=== PATIENT | male | born 1990 | race Asian ===

== ENCOUNTER → 2019-07-16 08:35 | Outpatient (CLI) | payer OTHER, SELFPAY ==
--- NOTE | 2019-07-16 | DI.US.S_ITS ---
PROCEDURE: US FINE NEEDLE ASPIRATION INDICATIONS: LEFT THYROID NODULE TECHNIQUE: The indications, alternatives, benefits, risks, and complications of the procedure were explained to the patient. Written informed consent was obtained and placed in the chart. The area of interest was examined sonographically and a site was chosen for ultrasound guided percutaneous sampling. The skin was prepared and draped in the usual fashion, and anesthetized with 1% lidocaine infiltrated from the skin down to the lesion. Multiple passes were then performed, with contents emptied into an appropriate pathology specimen container. A bandage was applied to the area of access at completion of the study. COMPARISON: None. FINDINGS: Location(s) of lesion(s) sampled: Mid pole of left thyroid lobe [place]: 25 gauge hypodermic needles. Number of passes: 6 Medications: 1% lidocaine for local anaesthesia. Complications: None. IMPRESSION: Successful ultrasound-guided left thyroid lobe nodule fine needle aspiration, with cytology results pending. Dictated by: Silvino Guerrero M.D. on 07/16/2019 at 10:54 Approved by: Silvino Guerrero M.D. on 07/16/2019 at 10:54
--- NOTE | 2019-07-16 | PATH_ITS ---
Note [facility] Accession Number: [id number] TESTS RESULT FLAG UNITS REF RANGE LAB Clinician Provided Cytology Information No. of containers..01 ThinPrep Vial No. of containers..10 Previously Prepared Cytology Slide [A] 01 L THYROID MID DIAGNOSIS: [A] 02 LEFT THYROID MID SUSPICIOUS FOR MALIGNANCY. [place] CATEGORY V. SUSPICIOUS FOR PAPILLARY CARCINOMA. SPECIMEN CONSISTS OF FOLLICULAR CELLS WITH NUCLEAR ENLARGEMENT, AND NUCLEAR PALLOR WITH GROOVES. INTRANUCLEAR PSEUDOINCLUSIONS ARE PRESENT. 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 Elam reviewed selected slides and agrees with the diagnosis. Dr. Madden called Dr. Law's office on 07/17/2019. Pathologist ICD10: 02 R89.6 01 Thyroid: normal size; no masses or tenderness. 02 Ana Paula Madden MD, Pathologist NPI- [id number] Sae Reynoso, Faro Dealer ([facility]) 01 30 CC, PINK, CLEAR Also received 5 alcohol fixed and 5 quick stained slides and 1 RNA vial. /[facility] 07/17/2019 1035 Local FLAG LEGEND: L-Low Normal,H-High Normal,LL-Alert Low,HH-Alert High <-Panic Low,>-Panic High,A-Abnormal,AA-Critical Abnormal Performed at: 01 =Z [facility] [address] [place] [address] [address], [place] [address] Candido Roberts MD, 02 [facility] [address] [place] [address] Ana Paula Madden MD, Performed at: 01 [facility] [address] [facility] [address] [place] [address], [place], [place] [id number] MD Candido Roberts MD Phone: [phone]
== END ==
PROVIDERS: Visit Provider Otolaryngology
DX: E04.1 Nontoxic single thyroid nodule (principal); R89.6 Abnormal cytological findings in specimens from other organs, systems and tissues
CPT/HCPCS: 10005

== ENCOUNTER 2019-09-15 13:50 | Emergency (ER) | payer OTHER, SELFPAY ==
[2019-09-15 13:57] VITALS: BP 160/104; PULSE 120; TEMP 37; O2SAT 99; BMI 29.2
--- NOTE | 2019-09-15 14:25 | DI.RAD.S_ITS ---
PROCEDURE: XR ACUTE ABDOMEN SERIES INDICATIONS: abd/ chest pain TECHNIQUE: One view chest and two views of the abdomen were acquired. COMPARISON: None. FINDINGS: Surgical changes and devices: None. Chest: Lungs are clear. Heart size is normal. No pleural effusions. No pneumoperitoneum. Abdomen: Bowel gas pattern is normal. No suspicious calcifications. Visualized solid organ contours appear normal. Bones: No suspicious bony lesions. IMPRESSION: No evidence of acute pulmonary or abdominal process. Dictated by: Shashi Dacosta M.D. on 09/15/2019 at 15:02 Approved by: Shashi Dacosta M.D. on 09/15/2019 at 15:02
--- NOTE | 2019-09-15 14:27 | ED.ABDPAIN ---
HPI - Abdominal Pain <FLACA Coello - Last Filed: 09/15/19 20:34> General Chief Complaint: Abdominal Pain Stated Complaint: stomach pain/burping alot/pain worse Time Seen by Provider: 09/15/19 14:16 Source: patient and family Mode of arrival: Ambulatory Limitations: no limitations History of Present Illness HPI narrative: The patient is a 28-year-old male former smoker with history of thyroid cancer who presents with a chief complaint of epigastric pain. He states he has had epigastric stomach pain for the past several years, but it got worse last night. He states he has had a lot of burping, gas, pain radiating up his chest and radiating to his left chest. He complains of some lightheadedness and dizziness. He denies any shortness of breath, denies any fevers. He states that his primary care told him he had acid reflux and started him on Protonix as an outpatient, but he did not start taking it. He has not taken anything at home to feel better other than Tylenol. He states he is very concerned about esophageal cancer in his father is recently been diagnosed. He has a scope scheduled on the 02 of October. He states that his primary care provider is aware of everything going on. His states that he has been drinking a lot of leg coffee, likes to eat fried and acidic and spicy foods. He denies any history of abdominal surgeries. Related Data Previous Rx's Medication Instructions Recorded omeprazole 40 mg PO DAILY #20 cap 09/15/19 sucralfate [Carafate] 10 ml PO QACHS 10 Days #400 ml 09/15/19 Review of Systems <FLACA Coello - Last Filed: 09/15/19 20:34> Review of Systems Narrative: GENERAL: Denies chills, fatigue, malaise, fever, sweats. HEENT: Denies sinus pain, ear pain, sore throat, difficulty swallowing, dizziness. RESPIRATORY: Denies dyspnea, cough, wheezing, hemoptysis, sputum. CARDIOVASCULAR: Denies chest pain, palpitations, orthopnea, edema, GASTROINTESTINAL: See HPI : Denies dysuria, frequency, incontinence, hematuria, urinary retention. MUSCULOSKELETAL: denies weakness, joint pain, or bony pain SKIN: Denies rash, skin lesions, or other NEUROLOGIC: Denies weakness, headache, numbness, change in speech, confusion, seizures, incoordination. PSYCHIATRIC: No concerning psychosocial issues. 12 point review of systems is negative except for those stated above Patient History <Amy BRANDEE Reynolds - Last Filed: 09/15/19 20:34> Social History Smoking Status: Former smoker Substance Use Type: does not use Exam <Amy BRANDEE Reynolds - Last Filed: 09/15/19 20:34> Narrative Exam Narrative: GENERAL: This is a well-nourished, well-developed patient, no acute distress HEAD: Atraumatic. Normocephalic. No temporal or scalp tenderness. EYES: Pupils equal round and reactive. Extraocular motions intact. No scleral icterus. No injection or drainage. ENT: Nose without bleeding, purulent drainage or septal hematoma. Throat without erythema, tonsillar hypertrophy or exudate. Uvula midline. Airway patent. NECK: Trachea midline. No JVD or lymphadenopathy. Supple, nontender, no meningeal signs. CARDIOVASCULAR: Regular rate and rhythm without murmurs, gallops, or rubs. RESPIRATORY: Clear to auscultation. Breath sounds equal bilaterally. No wheezes, rales, or rhonchi. No cough. No increased respiratory effort. No accessory muscle use. GASTROINTESTINAL: Abdomen soft. Of infection No hepato-splenomegaly, or palpable masses. No guarding. Active bowel sounds all 4 quadrants. Pain to palpation epigastric and right upper quadrant area EXTREMITIES: No clubbing, cyanosis, or edema. No joint tenderness, effusion, or edema noted. BACK: Nontender without deformity or crepitance. No flank tenderness. NEURO: AOx3. SKIN: No rash or erythema on visible skin. Postop thyroid incision clean dry intact well-approximated with no signs or symptoms Initial Vital Signs Initial Vital Signs: Vital Signs Temperature 98.6 F 09/15/19 13:57 Pulse Rate 120 H 09/15/19 13:57 Blood Pressure 160/104 H 09/15/19 13:57 Pulse Oximetry 99 09/15/19 13:57 <Meaghan Maza DO - Last Filed: 09/18/19 07:25> Initial Vital Signs Initial Vital Signs: Vital Signs Temperature 98.6 F 09/15/19 13:57 Pulse Rate 120 H 09/15/19 13:57 Blood Pressure 160/104 H 09/15/19 13:57 Pulse Oximetry 99 09/15/19 13:57 Course <RYLEY Coello-BC - Last Filed: 09/15/19 20:34> Orders Ordered: Discontinued Medications Al Hydrox/Mg Hydrox/Simethicone 20 ml/ Lidocaine HCl 15 ml 0 ml PO NOW ONE Stop: 09/15/19 15:20 Last Admin: 09/15/19 15:22 Dose: 35 ml Documented by: ZAID Sodium Chloride (Normal Saline 0.9%) 1,000 mls @ 1,000 mls/hr IV BOLUS ONE Stop: 09/15/19 15:25 Last Infusion: 09/15/19 16:42 Dose: 0 mls/hr Documented by: Admin: 09/15/19 14:34 Dose: 1,000 mls/hr Documented by: ZAID Ondansetron HCl (Zofran) 4 mg IV NOW ONE Stop: 09/15/19 14:27 Last Admin: 09/15/19 14:34 Dose: 4 mg Documented by: ZAID Pantoprazole Sodium (Protonix) 40 mg IV NOW ONE Stop: 09/15/19 14:27 Last Admin: 09/15/19 14:34 Dose: 40 mg Documented by: ZAID Vital Signs Vital signs: Vital Signs - 8 hr 09/15/19 13:57 09/15/19 15:17 09/15/19 16:08 Temperature 98.6 F Pulse Rate 120 H 95 H 84 Respiratory Rate 16 16 Blood Pressure 160/104 H Blood Pressure [Right Arm] 137/78 140/85 Pulse Oximetry 99 99 97 09/15/19 17:00 Temperature Pulse Rate 86 Respiratory Rate 16 Blood Pressure Blood Pressure [Right Arm] 135/90 Pulse Oximetry 98 <Meaghan Maza DO - Last Filed: 09/18/19 07:25> Orders Ordered: Discontinued Medications Al Hydrox/Mg Hydrox/Simethicone 20 ml/ Lidocaine HCl 15 ml 0 ml PO NOW ONE Stop: 09/15/19 15:20 Last Admin: 09/15/19 15:22 Dose: 35 ml Documented by: ZAID Sodium Chloride (Normal Saline 0.9%) 1,000 mls @ 1,000 mls/hr IV BOLUS ONE Stop: 09/15/19 15:25 Last Infusion: 09/15/19 16:42 Dose: 0 mls/hr Documented by: Admin: 09/15/19 14:34 Dose: 1,000 mls/hr Documented by: ZAID Ondansetron HCl (Zofran) 4 mg IV NOW ONE Stop: 09/15/19 14:27 Last Admin: 09/15/19 14:34 Dose: 4 mg Documented by: ZAID Pantoprazole Sodium (Protonix) 40 mg IV NOW ONE Stop: 09/15/19 14:27 Last Admin: 09/15/19 14:34 Dose: 40 mg Documented by: ZAID Vital Signs Vital signs: Vital Signs - 8 hr 09/15/19 13:57 09/15/19 15:17 09/15/19 16:08 Temperature 98.6 F Pulse Rate 120 H 95 H 84 Respiratory Rate 16 16 Blood Pressure 160/104 H Blood Pressure [Right Arm] 137/78 140/85 Pulse Oximetry 99 99 97 09/15/19 17:00 Temperature Pulse Rate 86 Respiratory Rate 16 Blood Pressure Blood Pressure [Right Arm] 135/90 Pulse Oximetry 98 MDM - Abdominal Pain <RYLEY Coello-BC - Last Filed: 09/15/19 20:34> Lab Data Result diagrams: 09/15/19 14:27 09/15/19 14:27 Labs: Lab Results 09/15/19 09/15/19 09/15/19 Range/Units 14:27 14:27 14:27 WBC 10.3 (4.5-11.0) X10^3/uL RBC 5.87 (4.5-5.9) X10^6/uL Hgb 17.2 (13.5-17.5) g/dL Hct 49.4 (41-53) % MCV 84.2 (80-100) fL MCH 29.3 (26-34) PG MCHC 34.8 (30-36) % RDW 12.8 (11.6-14.8) % Plt Count 310 (150-400) X10^3/uL Neut % (Auto) 73.2 (50-75) % Lymph % (Auto) 19.2 L (25-40) % [place] % (Auto) 6.9 (3-14) % Eos % (Auto) 0.5 L (2-4) % Baso % (Auto) 0.2 (0-2) % Neut # (Auto) 7600 H (9010-3087) /uL Lymph # (Auto) 2000 (4289-5598) /uL [place] # (Auto) 700 (0-900) /uL Eos # (Auto) 100 (0-450) /uL Baso # (Auto) 0 (0-100) /uL PT 11.1 (10.1-12.7) SECONDS INR 1.0 (0.9-1.3) APTT 31 (26.4-36.2) SECONDS Sodium 140 (137-145) mmol/L Potassium 3.7 (3.4-5.1) mmol/L Chloride 100 (98-107) mmol/L Carbon Dioxide 27 (22-32) mmol/L BUN 13 (9-20) mg/dL Creatinine 0.80 (0.66-1.25) mg/dL Estimated GFR > 60.0 (>60) mL/min BUN/Creatinine Ratio 16.3 (6-22) Glucose 110 H (70-100) mg/dL Calcium 10.6 H (8.4-10.2) mg/dL Total Bilirubin 1.1 (0.2-1.3) mg/dL AST 45 (17-59) IU/L ALT 100 H (<50) IU/L Alkaline Phosphatase 61 (38-126) U/L Total Creatine Kinase 71 (55-170) U/L CK-MB (CK-2) TNP CK-MB (CK-2) Rel Index TNP Troponin I < 0.012 (0.01-0.034) ng/mL Total Protein 8.9 H (6.3-8.2) g/dL Albumin 5.2 H (3.5-5.0) g/dL Globulin 3.7 (1.7-4.1) g/dL Albumin/Globulin Ratio 1.4 (1.0-2.8) Amylase 95 (30-110) U/L Lipase 63 (23-300) U/L Point of care testing: Urine Dip Bedside Urine Glucose Negative Bedside Urine Bilirubin - Negative Bedside Urine Ketone - Negative Urine Specific [place] 1.015 Bedside Urine Occult Blood - Negative Bedside Urine pH 6.0 Bedside Urine Protein - Negative Bedside Urine Urobilinogen - Negative Bedside Urine Nitrite - Negative Bedside Urine Leukocytes - Negative Esterase Imaging Data US - abdomen: Radiologist's impression: [address] [address] Ultrasound Report Signed Patient: Nestor Sen#: [id number] : 1990Acct:[id number] Age/Sex: 28 / MDate of Service: 09/15/19 Loc: ED Accession Number: [id number] Procedure: US abdomen limited Ordering Provider: Amy Reynolds PROCEDURE: US ABDOMEN LIMITED INDICATIONS: EPIGASTRIC PAIN TECHNIQUE: Real-time focused scanning was performed of the abdomen, with image documentation. COMPARISON: [facility], , XR ACUTE ABDOMEN SERIES, 09/15/2019, 14:39. FINDINGS: The liver demonstrates normal size. The liver demonstrates generalized increased echogenicity. This decreases ultrasound sensitivity for detection of hepatic masses. No findings of gallstones or sludge are seen. The gallbladder wall is not thickened, measuring 3 mm or less. No specific pericholecystic fluid is seen. The sonographic Heck sign is negative. There is no biliary dilatation, the common bile duct measures 4 mm. The visualized pancreas is unremarkable. IMPRESSION: The gallbladder demonstrates a normal sonographic appearance. No biliary dilatation is seen. The liver demonstrates increased echogenicity. This finding is nonspecific, yet it is most commonly attributed to fatty infiltration. Dictated by: Kevyn Hartman M.D. on 09/15/2019 at 15:34 Approved by: Kevyn Hartman M.D. on 09/15/2019 at 15:35 Chest x-ray: Radiologist's impression: [address] [address] XRay Report Signed Patient: Nestor Sen#: [id number] : 1990Acct:[id number] Age/Sex: 28 / MDate of Service: 09/15/19 Loc: ED Accession Number: [id number] Procedure: XR acute abdomen series Ordering Provider: Amy Reynolds PROCEDURE: XR ACUTE ABDOMEN SERIES INDICATIONS: abd/ chest pain TECHNIQUE: One view chest and two views of the abdomen were acquired. COMPARISON: None. FINDINGS: Surgical changes and devices: None. Chest: Lungs are clear. Heart size is normal. No pleural effusions. No pneumoperitoneum. Abdomen: Bowel gas pattern is normal. No suspicious calcifications. Visualized solid organ contours appear normal. Bones: No suspicious bony lesions. IMPRESSION: No evidence of acute pulmonary or abdominal process. Dictated by: Shashi Dacosta M.D. on 09/15/2019 at 15:02 Approved by: Shashi Dacosta M.D. on 09/15/2019 at 15:02 [facility] Narrative Medical decision making narrative: The patient is a 28-year-old male who presents with a chief complaint of epigastric pain. He states it has been going on for several months if not years, got worse yesterday. He has negative troponin, his lab work is grossly within normal limits. He does not an acute abdomen on exam. Given his pain to palpation right upper quadrant, I did obtain an ultrasound which illustrated no evidence of cholecystitis. He improved greatly in the emergency department with administration of Protonix and GI cocktail p.o. I discussed at length the importance of follow-up with primary care provider, dietary changes etc. The patient is very concerned that esophageal cancer, as his father recently had this diagnosis and discussed at length that controlling his GERD decreases risk factors for esophageal cancer. The patient already has planned follow-up with primary care provider as well as Gastroenterology in a planned endoscope. I discussed at length coming back to emergency department for any acute concerns such as concern of chest pain, shortness of breath order to her stroke. Patient have no questions or concerns upon discharge and state understanding of return precautions as well as follow-up care. <Meaghan Maza, DO - Last Filed: 09/18/19 07:25> Lab Data Labs: Lab Results 09/15/19 09/15/19 09/15/19 Range/Units 14:27 14:27 14:27 WBC 10.3 (4.5-11.0) X10^3/uL RBC 5.87 (4.5-5.9) X10^6/uL Hgb 17.2 (13.5-17.5) g/dL Hct 49.4 (41-53) % MCV 84.2 (80-100) fL MCH 29.3 (26-34) PG MCHC 34.8 (30-36) % RDW 12.8 (11.6-14.8) % Plt Count 310 (150-400) X10^3/uL Neut % (Auto) 73.2 (50-75) % Lymph % (Auto) 19.2 L (25-40) % [place] % (Auto) 6.9 (3-14) % Eos % (Auto) 0.5 L (2-4) % Baso % (Auto) 0.2 (0-2) % Neut # (Auto) 7600 H (4422-1076) /uL Lymph # (Auto) 2000 (6419-6228) /uL [place] # (Auto) 700 (0-900) /uL Eos # (Auto) 100 (0-450) /uL Baso # (Auto) 0 (0-100) /uL PT 11.1 (10.1-12.7) SECONDS INR 1.0 (0.9-1.3) APTT 31 (26.4-36.2) SECONDS Sodium 140 (137-145) mmol/L Potassium 3.7 (3.4-5.1) mmol/L Chloride 100 (98-107) mmol/L Carbon Dioxide 27 (22-32) mmol/L BUN 13 (9-20) mg/dL Creatinine 0.80 (0.66-1.25) mg/dL Estimated GFR > 60.0 (>60) mL/min BUN/Creatinine Ratio 16.3 (6-22) Glucose 110 H (70-100) mg/dL Calcium 10.6 H (8.4-10.2) mg/dL Total Bilirubin 1.1 (0.2-1.3) mg/dL AST 45 (17-59) IU/L ALT 100 H (<50) IU/L Alkaline Phosphatase 61 (38-126) U/L Total Creatine Kinase 71 (55-170) U/L CK-MB (CK-2) TNP CK-MB (CK-2) Rel Index TNP Troponin I < 0.012 (0.01-0.034) ng/mL Total Protein 8.9 H (6.3-8.2) g/dL Albumin 5.2 H (3.5-5.0) g/dL Globulin 3.7 (1.7-4.1) g/dL Albumin/Globulin Ratio 1.4 (1.0-2.8) Amylase 95 (30-110) U/L Lipase 63 (23-300) U/L Point of care testing: Urine Dip Bedside Urine Glucose Negative Bedside Urine Bilirubin - Negative Bedside Urine Ketone - Negative Urine Specific [place] 1.015 Bedside Urine Occult Blood - Negative Bedside Urine pH 6.0 Bedside Urine Protein - Negative Bedside Urine Urobilinogen - Negative Bedside Urine Nitrite - Negative Bedside Urine Leukocytes - Negative Esterase Discharge Plan Departure Patient Disposition: Home Clinical Impression: Abdominal pain Qualifiers: Abdominal location: epigastric Qualified Code(s): R10.13 - Epigastric pain Gastroesophageal reflux disease Qualifiers: Esophagitis presence: esophagitis presence not specified Qualified Code(s): K21.9 - Gastro-esophageal reflux disease without esophagitis Discharge Date/Time: 09/15/19 17:28 Instructions: Gastroesophageal Reflux Disease (Alternative Therapy), DI for Gastroesophageal Reflux Disease (GERD), DI for Abdominal Pain-Adult, GERD Diet Activity Restrictions/Additional Instructions: Please follow up with primary care provider in the next few days. [facility] [place] All of your lab work and imaging came back normal today. I suggest that you follow-up as scheduled for your scope, and further GI evaluation Please follow a GERD diet as this seems to make your symptoms worse. Please avoid acidic foods, spicy foods, deep fried fatty foods etc. Please come back to the emergency department for any acute concerns such as chest pain, shortness of breath etc Prescriptions: New omeprazole 40 mg capsule,delayed release(DR/EC) 40 mg PO DAILY Qty: 20 RF: 0 sucralfate [Carafate] 100 mg/mL suspension 10 ml PO QACHS 10 Days Qty: 400 RF: 0 Referrals: Skylar Gabriel [Primary Care Provider] -
[2019-09-15] MEDS: SODIUM CHLORIDE 0.9% 1,000 ML 1000 ML IV (14:34)
[2019-09-15] MEDS: ONDANSETRON 4 MG/2 ML INJ IV (14:34)
[2019-09-15] MEDS: PANTOPRAZOLE 40 MG VIAL IV (14:34)
[2019-09-15 14:38] LABS: Add Manual Diff / Slide Review NO; Basophils Absolute Auto 0 /uL (0-100); Basophils Percent Auto 0.2 % (0-2); Eosinophils Absolute Auto 100 /uL (0-450); Eosinophils Percent Auto 0.5 % (2-4); Hematocrit 49.4 % (41-53); Hemoglobin 17.2 g/dL (13.5-17.5); Lymphocytes Absolute Auto 2000 /uL (1100-4500); Lymphocytes Percent Auto 19.2 % (25-40); Mean Corpuscular HGB Conc 34.8 % (30-36); Mean Corpuscular Hemoglobin 29.3 PG (26-34); Mean Corpuscular Volume 84.2 fL (80-100); Monocytes Absolute Auto 700 /uL (0-900); Monocytes Percent Auto 6.9 % (3-14); Neutrophils Absolute Auto 7600 /uL (1500-7000); Neutrophils Percent Auto 73.2 % (50-75); Platelet Count 310 X10^3/uL (150-400); Red Blood Cell Count 5.87 X10^6/uL (4.5-5.9); Red Cell Distribution Width 12.8 % (11.6-14.8); White Blood Cell Count 10.3 X10^3/uL (4.5-11.0)
[2019-09-15 14:45] LABS: Prothrombin Time 11.1 SECONDS (10.1-12.7)
[2019-09-15 14:48] LABS: PTT Partial Thromboplastin Tim 31 SECONDS (26.4-36.2)
[2019-09-15 14:49] LABS: Alanine Aminotransferase 100 IU/L (<50); Albumin 5.2 g/dL (3.5-5.0); Albumin Globulin Ratio 1.4 (1.0-2.8); Alkaline Phosphatase 61 U/L (38-126); Amylase 95 U/L (30-110); Aspartate Aminotransferase 45 IU/L (17-59); BUN Creatinine Ratio 16.3 (6-22); Bilirubin Total 1.1 mg/dL (0.2-1.3); Blood Urea Nitrogen 13 mg/dL (9-20); Calcium 10.6 mg/dL (8.4-10.2); Carbon Dioxide 27 mmol/L (22-32); Chloride 100 mmol/L (98-107); Creatine Kinase 71 U/L (55-170); Estimated Glomerular Filt Rate > 60.0 mL/min (>60); Globulin 3.7 g/dL (1.7-4.1); Glucose 110 mg/dL (70-100); HEMOLYSIS < 15 (0-50); Lipase 63 U/L (23-300); Potassium 3.7 mmol/L (3.4-5.1); Sodium 140 mmol/L (137-145); Total Protein 8.9 g/dL (6.3-8.2)
[2019-09-15 15:00] LABS: Troponin I < 0.012 ng/mL (0.01-0.034)
[2019-09-15 15:17] VITALS: BP 137/78; PULSE 95; RESP 16; O2SAT 99
--- NOTE | 2019-09-15 15:18 | DI.US.S_ITS ---
PROCEDURE: US ABDOMEN LIMITED INDICATIONS: EPIGASTRIC PAIN TECHNIQUE: Real-time focused scanning was performed of the abdomen, with image documentation. COMPARISON: [facility], CR, XR ACUTE ABDOMEN SERIES, 09/15/2019, 14:39. FINDINGS: The liver demonstrates normal size. The liver demonstrates generalized increased echogenicity. This decreases ultrasound sensitivity for detection of hepatic masses. No findings of gallstones or sludge are seen. The gallbladder wall is not thickened, measuring 3 mm or less. No specific pericholecystic fluid is seen. The sonographic Heck sign is negative. There is no biliary dilatation, the common bile duct measures 4 mm. The visualized pancreas is unremarkable. IMPRESSION: The gallbladder demonstrates a normal sonographic appearance. No biliary dilatation is seen. The liver demonstrates increased echogenicity. This finding is nonspecific, yet it is most commonly attributed to fatty infiltration. Dictated by: Kevyn Hartman M.D. on 09/15/2019 at 15:34 Approved by: Kevyn Hartman M.D. on 09/15/2019 at 15:35
[2019-09-15] MEDS: MAG HYDROX/ALUMINUM/SIMETH SUS 20 ML, LIDOCAINE VISCOUS 2% 15 ML PO (15:22)
--- NOTE | 2019-09-15 15:41 | PC.NURSE ---
pt states he feels a lump in his throat when attempting to swallow. States the GI cocktail made him feel numb and helped a little with pain. Provider notified.
[2019-09-15 16:08] VITALS: BP 140/85; PULSE 84; RESP 16; O2SAT 97
[2019-09-15 17:00] VITALS: BP 135/90; PULSE 86; RESP 16; O2SAT 98
== END 2019-09-15 17:28 | disposition home or self-care (01) ==
PROVIDERS: Emergency Provider Nurse Practitioner Family
DX: R10.13 Epigastric pain (principal); K21.9 Gastro-esophageal reflux disease without esophagitis
CPT/HCPCS: 36415; 74022; 76705; 80053; 81003; 82150; 82550; 83690; 84484; 85025; 85610; 85730; 93005; 96361; 96374; 96375; 99283; 99284; C9113; J2405

== ENCOUNTER 2019-11-02 19:13 | Emergency (ER) | payer OTHER, SELFPAY ==
[2019-11-02 19:42] VITALS: BP 143/93; PULSE 74; RESP 15; TEMP 37; O2SAT 99; BMI 29.2
--- NOTE | 2019-11-02 19:42 | ED.GENADULT ---
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 Approximately 2 months ago underwent a total thyroidectomy secondary to thyroid cancer. Is currently on Synthroid. He states that for short time after he had a thyroidectomy he did have a low calcium level and was placed on replacement for this. He is not currently taking that. Comes emergency department today because he is having tingling on the left side of his face and also tingling and numbness of his left hand. He states that it feels somewhat what was like when his calcium was low. 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 He stated that when he did that they told him that it is unlikely related to his surgery. He was instructed to come to the emergency department. Related Data Previous Rx's Medication Instructions Recorded omeprazole 40 mg PO DAILY #20 cap 09/15/19 Review of Systems Constitutional Constitutional: Denies fever(s), Denies headache(s) and Denies weakness ENT Ears, Nose, Mouth, and Throat: Denies dizziness, Denies headache(s) and Denies disequilibrium Cardiovascular Cardiovascular: Denies chest pain and Denies dyspnea Respiratory Respiratory: Denies dyspnea Gastrointestinal Gastrointestinal: Denies abdominal pain Musculoskeletal Musculoskeletal: Denies myalgias, Denies arthralgias, Reports numbness and Reports tingling Integumentary/Breasts Skin/Breast: Denies rash Neurologic Neurologic: Denies dizziness, Denies headache(s), Reports numbness, Reports tingling, Reports paresthesias, Denies disequilibrium and Denies weakness Psychiatric Psychiatric: Denies anxiety Hematologic/Lymphatic Hematologic/Lymphatic: Denies easy bleeding Patient History Medical History Thyroid cancer (Acute) Surgical History H/O total thyroidectomy (Acute) Social History Smoking Status: Former smoker Smoking Status: Former smoker Substance Use Type: does not use Exam Initial Vital Signs Initial Vital Signs: Vital Signs Temperature 98.6 F 01/10/20 19:42 Pulse Rate 74 11/02/19 19:42 Respiratory Rate 15 11/02/19 19:42 Blood Pressure 143/93 H 11/02/19 19:42 Pulse Oximetry 99 11/02/19 19:42 Const General: cooperative and comfortable Limitations: mental status not altered HENTN Head: normocephalic Ears: TM's normal bilaterally Face and sinus: normal facial exam Resp Effort & Inspection: normal respiratory effort Cardio Rate: regular rate Rhythm: regular rhythm Skin Lesions: no lesions Rashes: no rashes Neuro General: alert, awake and oriented x3 Cranial Nerves: CN's II-XI intact bilaterally Cognition: normal cognition Speech: speech normal Gait: normal gait Motor: muscle tone normal throughout Sensory Exam: upper extremity (Decreased sensation light touch left hand compared to the right) Extrem General: normal to inspection and capillary refill normal Psych Appearance: grossly normal and well kempt Course Orders Ordered: ED Orders 11/02/19 19:19 EKG-12 Lead Stat 11/02/19 19:56 Complete Blood Count AUTO DIFF Stat Comprehensive Metabolic Panel Stat Free T3, Triiodothyronine Free Stat Free T4, Direct Thyroxine Stat Lipase Stat Magnesium Stat Phosphorous Stat Thyroid Stimulating Hormone Stat Vital Signs Vital signs: Vital Signs - 8 hr 11/02/19 19:42 11/02/19 20:47 11/02/19 21:21 Temperature 98.6 F Pulse Rate 74 78 81 Respiratory Rate 15 Blood Pressure 143/93 H 141/98 H Blood Pressure [Left Arm] 135/84 Pulse Oximetry 99 98 99 Medical Decision Making Lab Data Lab results reviewed: Yes I reviewed the patient's lab results. Result diagrams: 11/02/19 19:56 11/02/19 19:56 Labs: Lab Results 11/02/19 11/02/19 11/02/19 Range/Units 19:56 19:56 19:56 WBC 7.7 (4.5-11.0) X10^3/uL RBC 5.31 (4.5-5.9) X10^6/uL Hgb 15.5 (13.5-17.5) g/dL Hct 44.1 (41-53) % MCV 83.0 (80-100) fL MCH 29.1 (26-34) PG MCHC 35.1 (30-36) % RDW 13.1 (11.6-14.8) % Plt Count 272 (150-400) X10^3/uL Neut % (Auto) 54.3 (50-75) % Lymph % (Auto) 32.9 (25-40) % [place] % (Auto) 10.5 (3-14) % Eos % (Auto) 1.9 L (2-4) % Baso % (Auto) 0.4 (0-2) % Neut # (Auto) 4200 (1217-8113) /uL Lymph # (Auto) 2500 (9832-5081) /uL [place] # (Auto) 800 (0-900) /uL Eos # (Auto) 100 (0-450) /uL Baso # (Auto) 0 (0-100) /uL Sodium Cancelled Potassium Cancelled Chloride Cancelled Carbon Dioxide Cancelled BUN Cancelled Creatinine Cancelled Estimated GFR Cancelled BUN/Creatinine Ratio Cancelled Glucose Cancelled Calcium Cancelled Phosphorus (2.5-4.5) mg/dL Magnesium (1.6-2.3) mg/dL Total Bilirubin (0.2-1.3) mg/dL AST (17-59) IU/L ALT (<50) IU/L Alkaline Phosphatase (38-126) U/L Total Protein (6.3-8.2) g/dL Albumin (3.5-5.0) g/dL Globulin (1.7-4.1) g/dL Albumin/Globulin Ratio (1.0-2.8) Lipase (23-300) U/L TSH 0.08 L (0.47-4.68) uIU/mL Free T4 (0.78-2.19) ng/dL Free T3 (2.77-5.27) pg/mL 11/02/19 11/02/19 Range/Units 19:56 19:56 WBC (4.5-11.0) X10^3/uL RBC (4.5-5.9) X10^6/uL Hgb (13.5-17.5) g/dL Hct (41-53) % MCV (80-100) fL MCH (26-34) PG MCHC (30-36) % RDW (11.6-14.8) % Plt Count (150-400) X10^3/uL Neut % (Auto) (50-75) % Lymph % (Auto) (25-40) % [place] % (Auto) (3-14) % Eos % (Auto) (2-4) % Baso % (Auto) (0-2) % Neut # (Auto) (9383-9566) /uL Lymph # (Auto) (9696-1344) /uL [place] # (Auto) (0-900) /uL Eos # (Auto) (0-450) /uL Baso # (Auto) (0-100) /uL Sodium 138 Potassium 3.4 Chloride 100 Carbon Dioxide 26 BUN 16 Creatinine 0.70 Estimated GFR > 60.0 BUN/Creatinine Ratio 22.9 H Glucose 111 H Calcium 9.4 Phosphorus 3.5 (2.5-4.5) mg/dL Magnesium 2.0 (1.6-2.3) mg/dL Total Bilirubin 1.0 (0.2-1.3) mg/dL AST 52 (17-59) IU/L ALT 112 H (<50) IU/L Alkaline Phosphatase 48 (38-126) U/L Total Protein 7.7 (6.3-8.2) g/dL Albumin 4.6 (3.5-5.0) g/dL Globulin 3.1 (1.7-4.1) g/dL Albumin/Globulin Ratio 1.5 (1.0-2.8) Lipase 88 (23-300) U/L TSH (0.47-4.68) uIU/mL Free T4 1.33 (0.78-2.19) ng/dL Free T3 4.47 (2.77-5.27) pg/mL ECG Data Attestation: I personally reviewed and interpreted this ECG as follows: Prior ECG tracings: not available for review Interpretation: Sinus rhythm Ventricular rate is 74 Normal axis Normal QRS Normal QTC No ST T wave changes MDM Narrative Medical decision making narrative: Low suspicion for CVA or TIA given the patient's history and physical. He does have a low TSH but normal T4 and T3. He was told that his TSH should be low given his history of thyroid cancer. His calcium magnesium and phosphorus were all unremarkable. He has no objective neurologic findings on his exam. All of his tingling as subjective. Feel that we could hold on head CT for now. Will hold on further workup for now. Have patient follow up with his primary provider. He was given return precautions and follow-up instructions. He expressed understanding and agreement plan. Discharge Plan Departure Patient Disposition: Home Clinical Impression: Paresthesias Discharge Date/Time: 11/02/19 21:22 Instructions: DI for Numbness/tingling Activity Restrictions/Additional Instructions: Recommend you contact your primary provider for a follow-up and to discuss continued workup. Continue all of your medications as directed. Return to the emergency department for any new or worsening symptoms Prescriptions: No Action omeprazole 40 mg capsule,delayed release(DR/EC) 40 mg PO DAILY Qty: 20 RF: 0 Referrals: Skylar Gabriel [Primary Care Provider] -
[2019-11-02 20:05] LABS: Add Manual Diff / Slide Review NO; Basophils Absolute Auto 0 /uL (0-100); Basophils Percent Auto 0.4 % (0-2); Eosinophils Absolute Auto 100 /uL (0-450); Eosinophils Percent Auto 1.9 % (2-4); Hematocrit 44.1 % (41-53); Hemoglobin 15.5 g/dL (13.5-17.5); Lymphocytes Absolute Auto 2500 /uL (1100-4500); Lymphocytes Percent Auto 32.9 % (25-40); Mean Corpuscular HGB Conc 35.1 % (30-36); Mean Corpuscular Hemoglobin 29.1 PG (26-34); Monocytes Absolute Auto 800 /uL (0-900); Monocytes Percent Auto 10.5 % (3-14); Neutrophils Absolute Auto 4200 /uL (1500-7000); Neutrophils Percent Auto 54.3 % (50-75); Platelet Count 272 X10^3/uL (150-400); Red Blood Cell Count 5.31 X10^6/uL (4.5-5.9); Red Cell Distribution Width 13.1 % (11.6-14.8); White Blood Cell Count 7.7 X10^3/uL (4.5-11.0)
[2019-11-02 20:18] LABS: Alanine Aminotransferase 112 IU/L (<50); Albumin 4.6 g/dL (3.5-5.0); Albumin Globulin Ratio 1.5 (1.0-2.8); Alkaline Phosphatase 48 U/L (38-126); Aspartate Aminotransferase 52 IU/L (17-59); BUN Creatinine Ratio 22.9 (6-22); Blood Urea Nitrogen 16 mg/dL (9-20); Calcium 9.4 mg/dL (8.4-10.2); Carbon Dioxide 26 mmol/L (22-32); Chloride 100 mmol/L (98-107); Estimated Glomerular Filt Rate > 60.0 mL/min (>60); Globulin 3.1 g/dL (1.7-4.1); Glucose 111 mg/dL (70-100); HEMOLYSIS 26 (0-50); Lipase 88 U/L (23-300); Phosphorous 3.5 mg/dL (2.5-4.5); Potassium 3.4 mmol/L (3.4-5.1); Sodium 138 mmol/L (137-145); Total Protein 7.7 g/dL (6.3-8.2)
[2019-11-02 20:41] LABS: Free T3, Triiodothyronine Free 4.47 pg/mL (2.77-5.27); Free T4, Direct Thyroxine 1.33 ng/dL (0.78-2.19)
[2019-11-02 20:47] VITALS: BP 135/84; PULSE 78; O2SAT 98
[2019-11-02 20:55] LABS: Thyroid Stimulating Hormone 0.08 uIU/mL (0.47-4.68)
[2019-11-02 21:21] VITALS: BP 141/98; PULSE 81; O2SAT 99
== END 2019-11-02 21:22 | disposition home or self-care (01) ==
PROVIDERS: Emergency Provider Emergency Medicine
DX: R20.2 Paresthesia of skin (principal); R20.0 Anesthesia of skin
CPT/HCPCS: 36415; 80053; 83690; 83735; 84100; 84439; 84443; 84481; 85025; 93005; 99284

== ENCOUNTER 2020-07-15 16:43 | Emergency (ER) | payer OTHER, SELFPAY ==
[2020-07-15] VITALS (11 sets, daily range): BP systolic 122–163; BP diastolic 74–101; PULSE 79–97; RESP 7–22; TEMP 37; O2SAT 95–100; BMI 32.1
--- NOTE | 2020-07-15 17:04 | DI.RAD.S_ITS ---
PROCEDURE: XR CHEST 1V INDICATIONS: chest pain TECHNIQUE: One view of the chest was acquired. COMPARISON: None. FINDINGS: Surgical changes and devices: Multiple clips in the thyroid fossa. Lungs and pleura: Lungs are clear. No pleural effusions or pneumothorax. Mediastinum: Mediastinal contours appear normal. Heart size is normal. Bones and chest wall: No suspicious bony lesions. Overlying soft tissues appear unremarkable. IMPRESSION: No acute cardiopulmonary disease process. Dictated by: Esme Mcwilliams MD, PhD on 07/15/2020 at 17:33 Approved by: Esme Mcwilliams MD, PhD on 07/15/2020 at 17:34
[2020-07-15 17:14] LABS: Add Manual Diff / Slide Review NO; Basophils Absolute Auto 0 /uL (0-100); Basophils Percent Auto 0.2 % (0-2); Eosinophils Absolute Auto 100 /uL (0-450); Eosinophils Percent Auto 1.4 % (2-4); Hematocrit 45.4 % (41-53); Hemoglobin 15.6 g/dL (13.5-17.5); Lymphocytes Absolute Auto 2600 /uL (1100-4500); Lymphocytes Percent Auto 27.8 % (25-40); Mean Corpuscular HGB Conc 34.4 % (30-36); Mean Corpuscular Hemoglobin 29.6 PG (26-34); Monocytes Absolute Auto 900 /uL (0-900); Monocytes Percent Auto 9.9 % (3-14); Neutrophils Absolute Auto 5700 /uL (1500-7000); Neutrophils Percent Auto 60.7 % (50-75); Platelet Count 275 X10^3/uL (150-400); Red Blood Cell Count 5.27 X10^6/uL (4.5-5.9); Red Cell Distribution Width 12.7 % (11.6-14.8); White Blood Cell Count 9.3 X10^3/uL (4.5-11.0)
[2020-07-15 17:15] LABS: Prothrombin Time 11.1 SECONDS (10.1-12.7)
[2020-07-15 17:17] LABS: PTT Partial Thromboplastin Tim 32 SECONDS (26.4-36.2)
[2020-07-15 17:19] LABS: Alanine Aminotransferase 150 IU/L (<50); Albumin 4.5 g/dL (3.5-5.0); Albumin Globulin Ratio 1.3 (1.0-2.8); Alkaline Phosphatase 64 U/L (38-126); Aspartate Aminotransferase 52 IU/L (17-59); BUN Creatinine Ratio 14.7 (6-22); Bilirubin Total 0.7 mg/dL (0.2-1.3); Blood Urea Nitrogen 11 mg/dL (9-20); Calcium 8.8 mg/dL (8.4-10.2); Carbon Dioxide 29 mmol/L (22-32); Chloride 102 mmol/L (98-107); Creatine Kinase 113 U/L (55-170); Estimated Glomerular Filt Rate > 60.0 mL/min (>60); Globulin 3.4 g/dL (1.7-4.1); Glucose 99 mg/dL (70-100); HEMOLYSIS 17 (0-50); Lipase 93 U/L (23-300); Potassium 3.6 mmol/L (3.4-5.1); Sodium 139 mmol/L (137-145); Total Protein 7.9 g/dL (6.3-8.2)
[2020-07-15 17:31] LABS: Troponin I < 0.012 ng/mL (0.01-0.034)
[2020-07-15 17:35] LABS: CKMB % Relative Index 0.6 % (1.5-5.0); Creatine Kinase MB 0.71 ng/mL (<2.37)
[2020-07-15] MEDS: KETOROLAC 60 MG/2 ML VIAL 15 MG IV (18:24)
--- NOTE | 2020-07-15 23:45 | ED_ITS ---
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 Patient reports pain is constant but changes in severity and rates as 6 to 7/10 at this time. Patient reports pain character is like a pressure. He denies associated symptoms such as dyspnea, nausea, vomiting, dizziness but states he has been feeling tired. Patient reports pain feels better when he takes deep breaths and worse with when he is sitting up. Patient denies recent cough, sore throat, known exposure to COVID-19. Patient denies family history of early from cardiac disease. Patient states he has been feeling stressed out with relationship, work condition, worrying about his health and feels depressed. Patient reports he has not been sleeping well for several days. He is concerned about elevated ALT level that was drawn last week and was told in the past has a fatty liver. Patient denies suicidal ideation at this time or homicidal ideatio n. Patient used to take trazodone and duloxetine which he stopped taking due to patient felt tired from the medication use after he spoke with his provider. He denies recent long travel, surgery, history of blood clots, calf pain. Patient states he has been taking a couple of large hard liquor shots every other day. Related Data Home Medications Medication Instructions Recorded Confirmed levothyroxine 07/15/20 Previous Rx's Medication Instructions Recorded omeprazole 40 mg PO DAILY #20 cap 09/15/19 hydroxyzine HCl 25 mg PO BID PRN #10 tab 07/15/20 Review of Systems <LINDA Palacios - Last Filed: 07/16/20 00:17> Review of Systems Narrative: General: Denies fever, chills, fatigue, malaise, sweats. HEENT: Denies sinus pain, ear pain, sore throat, difficulty swallowing, dizziness. Respiratory: Denies dyspnea, cough, wheezing, hemoptysis, sputum. Cardiovascular: See HPI Gastrointestinal: Denies nausea, vomiting, abdominal pain, diarrhea, constipat ion, melena. : Denies dysuria, frequency, incontinence, hematuria, urinary retention. Musculoskeletal: Denies weakness, joint pain or bony pain. Skin: Denies rash, skin lesions, or other. Neurologic: Denies weakness, headache, numbness, change in speech, confusion, seizures, incoordination. Psychiatric: See HPI 12-point review of systems is negative except for those stated above. Patient History <LINDA Palacios - Last Filed: 07/16/20 00:17> Medical History Depression (Acute) Insomnia (Acute) Thyroid cancer (Acute) Surgical History H/O total thyroidectomy (Acute) Social History Smoking Status: Current some day smoker alcohol intake: current substance use type: does not use Exam <LINDA Palacios - Last Filed: 07/16/20 00:17> Narrative Exam Narrative: GEN: Alert, oriented x 3, well appearing and nourished, and appears to be worrisome. Head: Normal cephalic, atraumatic. No scalp or temporal tenderness, palpable mass or rash. EYES: Pupils are equal, round, and reactive to light and accommodation. Extraocular muscles are intact bilaterally. There is no subconjunctival hemorrhage, exudate and sclera non-icteric. ENT: Hearing grossly intact. Airway patent. Neck: Trachea in midline. No JVD, non-tender without lymphadenopathy. No masses or thyroid megaly. Well-healed transverse old surgical incision in anterior low neck. Supple, non-tender and no meningeal signs. CARDIAC: Normal regular rate and rhythm without murmurs, gallops, or rubs. No chest wall tenderness. No peripheral edema, cyanosis or pallor. Capillary refill is less than 2 seconds. RESPIRATORY: Lungs are clear to auscultate bilaterally. No cough, wheezes, rales, or rhonchi. No stridor, respiratory distress, increase work of breathing, or accessary muscle used. ABD: Abdomen soft, nontender and non-distended. No guarding or rebound tenderness to palpate. Bowel sounds are normal in all 4 quadrants. There is no palpable masses or organomegaly. EXT: Full painless ROM of all extremities with no loss of sensation, strength, effusion or edema. SKIN: Warm, dry, normal color for patient. No erythema, lesions or rash over visible areas. BACK: Nontender without deformity or crepitance. No flank tenderness. NEUROLOGICAL: Alert and oriented to place, time and person. Sensation and motor function intact bilaterally. No facial droops, dysphasia. PSYCHIATRIC: Good judgement and reason, without hallucinations, abnormal affect or abnormal behaviors during the examination. Patient is not suicidal. Initial Vital Signs Initial Vital Signs: Vital Signs Pulse Rate 94 H 07/15/20 16:50 Respiratory Rate 21 07/15/20 16:50 <Power Rodas DO - Last Filed: 07/16/20 02:15> Initial Vital Signs Initial Vital Signs: Vital Signs Pulse Rate 94 H 07/15/20 16:50 Respiratory Rate 21 07/15/20 16:50 Scores <LINDA Palacios - Last Filed: 07/16/20 00:17> GCS Waldron coma scale eye opening: Spontaneous Jaxon coma scale verbal response: Orientated Waldron coma scale motor response: Obey commands Waldron coma scale total score: 15 HEART Score Heart Score history: Slightly Suspicious Heart Score EKG: Normal Heart Score Age: < 45 years old Heart Score risk factors: No known risk factors Heart Score troponin: < or = to normal limit Heart Score Total: 0 Wells' Criteria for PE Clinical signs and symptoms of DVT: No PE is #1 Dx or equally likely: No Heart rate > 100: No Immobilization at least 3 days or surg in previous 4 weeks: No History of PE or DVT: No Hemoptysis: No Malignancy w/Treatment within 6 months or palliative: No Wells' PE Score total: 0 Course <LINDA Palacios - Last Filed: 07/16/20 00:17> Orders Ordered: Discontinued Medications Ketorolac Tromethamine (Toradol) 15 mg IV NOW ONE Stop: 07/15/20 18:12 Last Admin: 07/15/20 18:24 Dose: 15 mg Documented by: SHANTELL Vital Signs Vital signs: Vital Signs - 8 hr 07/15/20 18:30 07/15/20 19:00 07/15/20 19:30 Pulse Rate 79 85 81 Respiratory Rate 19 21 21 Blood Pressure 124/74 122/78 Pulse Oximetry 95 96 97 07/15/20 19:31 07/15/20 20:00 Pulse Rate 80 81 Respiratory Rate 21 22 Blood Pressure 136/77 126/82 Pulse Oximetry 96 96 <Power Rodas DO - Last Filed: 07/16/20 02:15> Orders Ordered: Discontinued Medications Ketorolac Tromethamine (Toradol) 15 mg IV NOW ONE Stop: 07/15/20 18:12 Last Admin: 07/15/20 18:24 Dose: 15 mg Documented by: SHANTELL Vital Signs Vital signs: Vital Signs - 8 hr 07/15/20 18:30 07/15/20 19:00 07/15/20 19:30 Pulse Rate 79 85 81 Respiratory Rate 19 21 21 Blood Pressure 124/74 122/78 Pulse Oximetry 95 96 97 07/15/20 19:31 07/15/20 20:00 Pulse Rate 80 81 Respiratory Rate 21 22 Blood Pressure 136/77 126/82 Pulse Oximetry 96 96 MDM - Chest Pain <LINDA Palacios - Last Filed: 07/16/20 00:17> Differential Diagnosis Differential diagnosis: Likely pneumothorax, atypical chest pain, costochondritis and other (anxiety, GERD, pericarditis) Medical Records Data Attestation: I reviewed the patient's medical records. Lab Data Attestation: I reviewed the patient's lab results. Result diagrams: 07/15/20 17:00 07/15/20 17:00 Labs: Lab Results 07/15/20 07/15/20 07/15/20 Range/Units 17:00 17:00 17:00 WBC 9.3 (4.5-11.0) X10^3/uL RBC 5.27 (4.5-5.9) X10^6/uL Hgb 15.6 (13.5-17.5) g/dL Hct 45.4 (41-53) % MCV 86.0 (80-100) fL MCH 29.6 (26-34) PG MCHC 34.4 (30-36) % RDW 12.7 (11.6-14.8) % Plt Count 275 (150-400) X10^3/uL Neut % (Auto) 60.7 (50-75) % Lymph % (Auto) 27.8 (25-40) % [place] % (Auto) 9.9 (3-14) % Eos % (Auto) 1.4 L (2-4) % Baso % (Auto) 0.2 (0-2) % Neut # (Auto) 5700 (0898-8002) /uL Lymph # (Auto) 2600 (9162-8669) /uL [place] # (Auto) 900 (0-900) /uL Eos # (Auto) 100 (0-450) /uL Baso # (Auto) 0 (0-100) /uL PT 11.1 (10.1-12.7) SECONDS INR 1.0 (0.9-1.3) APTT 32 (26.4-36.2) SECONDS Sodium 139 (137-145) mmol/L Potassium 3.6 (3.4-5.1) mmol/L Chloride 102 (98-107) mmol/L Carbon Dioxide 29 (22-32) mmol/L BUN 11 (9-20) mg/dL Creatinine 0.75 (0.66-1.25) mg/dL Estimated GFR > 60.0 (>60) mL/min BUN/Creatinine Ratio 14.7 (6-22) Glucose 99 (70-100) mg/dL Calcium 8.8 (8.4-10.2) mg/dL Total Bilirubin 0.7 (0.2-1.3) mg/dL AST 52 (17-59) IU/L ALT 150 H (<50) IU/L Alkaline Phosphatase 64 (38-126) U/L Total Creatine Kinase 113 (55-170) U/L CK-MB (CK-2) 0.71 (<2.37) ng/mL CK-MB (CK-2) Rel Index 0.6 L (1.5-5.0) % Troponin I < 0.012 (0.01-0.034) ng/mL Total Protein 7.9 (6.3-8.2) g/dL Albumin 4.5 (3.5-5.0) g/dL Globulin 3.4 (1.7-4.1) g/dL Albumin/Globulin Ratio 1.3 (1.0-2.8) Lipase 93 (23-300) U/L Urine Dip Bedside Urine Glucose Negative Bedside Urine Bilirubin - Negative Bedside Urine Ketone - Negative Urine Specific Orange 1.005 Bedside Urine Occult Blood - Negative Bedside Urine pH 6.0 Bedside Urine Protein - Negative Bedside Urine Urobilinogen - Negative Bedside Urine Nitrite - Negative Bedside Urine Leukocytes - Negative Esterase Imaging Data Chest x-ray: Radiologist's Impression: [address] [address] XRay Report Signed Patient: Nestor Sen#: [id number] : 1990Acct:[id number] Age/Sex: 29 / MDate of Service: 07/15/20 Loc: ED Accession Number: [id number] Procedure: XR chest 1V Ordering Provider: Milena De La Torre MD PROCEDURE: XR CHEST 1V INDICATIONS: chest pain TECHNIQUE: One view of the chest was acquired. COMPARISON: None. FINDINGS: Surgical changes and devices: Multiple clips in the thyroid fossa. Lungs and pleura: Lungs are clear. No pleural effusions or pneumothorax. Mediastinum: Mediastinal contours appear normal. Heart size is normal. Bones and chest wall: No suspicious bony lesions. Overlying soft tissues appear unremarkable. IMPRESSION: No acute cardiopulmonary disease process. Dictated by: Esme Mcwilliams MD, PhD on 07/15/2020 at 17:33 Approved by: Esme Mcwilliams MD, PhD on 07/15/2020 at 17:34 ECG Data Attestation: I personally reviewed and interpreted this ECG as follows: Prior ECG tracings: available for review Interpretation: Sinus rhythm rate at 90. Normal [place]. TN interval 162, QRS duration 95, QT/QTC 363/410. No acute ST changes. Similar ECG tracings from previous visits. MDM Narrative Medical decision making narrative: This is a 29-year-old male who presents to ED with left-sided dull and constant chest pain for last 10 days without associated symptoms. EKG is normal sinus rhythm. Chest x-ray does not show acute findings. Physical exam is unremarkable. Patient additionally reported that his under increase stressed and feels depressed. Unremarkable CBC test, coag test, chemistry test. Cardiac enzymes were negative. No further repeated cardiac enzymes done today since patient's pain has been going on for last 10 days constantly. Slightly elevated ALT and this has been a trend for patient worse today as of 150. Normal AST and alkaline phosphatase. Normal bilirubin. Unremarkable abdominal exam. Patient has been tracking this and expressed is concerned to me. Patient was medicated with IV Toradol 15 mg which improved pain down to 1/10. Considered pericarditis per physical exam is not consistent. Considered PE but Well's criteria score is 0 and history and objective findings were not consistent with this. Patient's chest discomfort could be related to anxiety component or costal chondritis. Heart score is 0 and patient advised to follow- up with primary care physician for further evaluation and workup outpatiently for chest pain and elevated ALT. Advised to eat low-fat diet, decrease alcohol intake, exercise regularly, get adequate sleep at night and to manage stress and seek help for counseling and evaluation for mental health. Advised to return to ED, contact his command, friends, or biochemistry technician if suicidal or homicidal ideation occurs. Advised to take [id number] Tylenol and or Motrin as needed for discomfort and try hydroxyzine for anxiety or sleep with the medication precautions. Return precautions were discussed with patient and verbalized understanding in agreement with the treatment plan. <Power Rodas, DO - Last Filed: 07/16/20 02:15> Lab Data Labs: Lab Results 07/15/20 07/15/20 07/15/20 Range/Units 17:00 17:00 17:00 WBC 9.3 (4.5-11.0) X10^3/uL RBC 5.27 (4.5-5.9) X10^6/uL Hgb 15.6 (13.5-17.5) g/dL Hct 45.4 (41-53) % MCV 86.0 (80-100) fL MCH 29.6 (26-34) PG MCHC 34.4 (30-36) % RDW 12.7 (11.6-14.8) % Plt Count 275 (150-400) X10^3/uL Neut % (Auto) 60.7 (50-75) % Lymph % (Auto) 27.8 (25-40) % [place] % (Auto) 9.9 (3-14) % Eos % (Auto) 1.4 L (2-4) % Baso % (Auto) 0.2 (0-2) % Neut # (Auto) 5700 (2746-0694) /uL Lymph # (Auto) 2600 (4555-2144) /uL [place] # (Auto) 900 (0-900) /uL Eos # (Auto) 100 (0-450) /uL Baso # (Auto) 0 (0-100) /uL PT 11.1 (10.1-12.7) SECONDS INR 1.0 (0.9-1.3) APTT 32 (26.4-36.2) SECONDS Sodium 139 (137-145) mmol/L Potassium 3.6 (3.4-5.1) mmol/L Chloride 102 (98-107) mmol/L Carbon Dioxide 29 (22-32) mmol/L BUN 11 (9-20) mg/dL Creatinine 0.75 (0.66-1.25) mg/dL Estimated GFR > 60.0 (>60) mL/min BUN/Creatinine Ratio 14.7 (6-22) Glucose 99 (70-100) mg/dL Calcium 8.8 (8.4-10.2) mg/dL Total Bilirubin 0.7 (0.2-1.3) mg/dL AST 52 (17-59) IU/L ALT 150 H (<50) IU/L Alkaline Phosphatase 64 (38-126) U/L Total Creatine Kinase 113 (55-170) U/L CK-MB (CK-2) 0.71 (<2.37) ng/mL CK-MB (CK-2) Rel Index 0.6 L (1.5-5.0) % Troponin I < 0.012 (0.01-0.034) ng/mL Total Protein 7.9 (6.3-8.2) g/dL Albumin 4.5 (3.5-5.0) g/dL Globulin 3.4 (1.7-4.1) g/dL Albumin/Globulin Ratio 1.3 (1.0-2.8) Lipase 93 (23-300) U/L Urine Dip Bedside Urine Glucose Negative Bedside Urine Bilirubin - Negative Bedside Urine Ketone - Negative Urine Specific Orange 1.005 Bedside Urine Occult Blood - Negative Bedside Urine pH 6.0 Bedside Urine Protein - Negative Bedside Urine Urobilinogen - Negative Bedside Urine Nitrite - Negative Bedside Urine Leukocytes - Negative Esterase Discharge Plan Departure Patient Disposition: Home Clinical Impression: Atypical chest pain, Anxiety, Elevated ALT measurement Discharge Date/Time: 07/15/20 20:15 Instructions: DI for Atypical Chest Pain, DI for Anxiety -- Adult Activity Restrictions/Additional Instructions: You have been diagnosed with [atypical chest pain likely from anxiety or costal chondritis. EKG, blood tests, chest x-ray are looking good and assuring. Negative cardiac enzymes but slightly elevated ALT level of 150.]. What to do: *Take your medications as directed. Please take [id number] Tylenol and or Motrin as needed for discomfort. You can take Tylenol 650 to 1000 mg up to 3 to 4 times a day as needed for discomfort. Ibuprofen 400-600 mg up to 3 times a day as needed for pain with food to decrease GI irritation. Take hydroxyzine when you feel anxious and have difficult time sleep at night. This medication can cause drowsiness so please do not drive, drink alcohol, or operate heavy equipments. Hydroxyzine has been transmitted to [facility] in [place]. *Follow up with your primary care provider in 2-3 days, call for an appointment. Let them know you were seen in the ED and that we asked you to be seen in follow up. With low risk and atypical chest pain, further workup can be done o ut patiently for cardiac and elevated liver function test. *Return to ED if you have any new, worsening, or concerning symptoms, such as [worsening pain, different pain, breathing difficulty, unable to tolerate fluids, fever, or any acute concerns]. Prescriptions: New hydroxyzine HCl 25 mg tablet 25 mg PO BID PRN (Reason: anxiety) Qty: 10 RF: 0 No Action levothyroxine 137 mcg tablet RF: 0 omeprazole 40 mg capsule,delayed release(DR/EC) 40 mg PO DAILY Qty: 20 RF: 0 Referrals: [facility] [Outside] Skylar Gabriel [Primary Care Provider] -
== END 2020-07-15 20:15 | disposition home or self-care (01) ==
PROVIDERS: Emergency Medicine; Emergency Provider Nurse Practitioner Family
DX: R07.89 Other chest pain (principal); F41.9 Anxiety disorder, unspecified; R74.0 Nonspecific elevation of levels of transaminase and lactic acid dehydrogenase [LDH]
CPT/HCPCS: 36415; 71045; 80053; 81003; 82550; 82553; 83690; 84484; 85025; 85610; 85730; 93005; 93010; 96374; 99284; J1885